=== PATIENT | female | born 1990 | race Two or more races ===

== ENCOUNTER 2024-09-04 20:14 | Emergency (ER) | payer MEDICAID, SELFPAY ==
[2024-09-04 20:16] VITALS: BMI 27.4
[2024-09-04 20:31] VITALS: BP 133/78; PULSE 94; RESP 20; TEMP 37.1; O2SAT 97
--- NOTE | 2024-09-04 20:41 | PD.EDANX ---
ED Anxiety RME/HPI General Chief Complaint: Depression Stated Complaint: SUICIDAL THOUGHTS Time Seen by Provider: 09/04/24 20:40 Arrival date/time: 09/04/24 20:14 RME / HPI RME / HPI narrative: This section includes all my notes and documentations, including HPI, PE, and ED course. Selvin Salcido MD HPI: 33yo female with history of schizophrenia, bipolar disorder here requesting help for anxiety and racing thoughts. No thoughts of hurting herself or others. No other complaints. ROS: All negative except as documented in HPI. Physical Exam: General: Alert and oriented. Appears anxious. Eyes: Conjunctivae and lids clear. ENT: No nasal congestion. Neck: Supple. Heart: RRR. Lungs: No respiratory distress. Good air movement. No rhonchi, wheezing, rales. Abdomen: Soft and nontender. Skin: Warm and dry. Neuro: Alert and oriented X 3. At this point, diagnoses include anxiety and racing thoughts. Treatment here included Buspar and Propanolol. Recommended more outpatient management. Based on my best medical judgment, made decision no further evaluation or treatment indicated at this time. Patient understands and agrees to the discharge instructions customized and printed, see below. Discharge Instructions from Dr. Salcido: 1. As you requested, we are treating you for anxiety and racing thoughts. And not transferring you to inpatient psychiatric unit. 2. You don't meet the criteria for emergency assisted in psychiatric unit against your will. Because you have no thoughts of hurting yourself or others. And there are no signs of psychosis (loss of touch with reality) which can potentially be harmful to you and others. 3. Take BuSpar and propranolol as prescribed. May take a couple weeks for full benefit. 4. See a private doctor on 09/06/2024 for recheck and further care. Ask to help you stay healthy both physically and mentally. And help to receive all services available to you, including referral to see mental health specialists. 5. Seek immediate medical care (you can call 911 any time) with thoughts of hurting yourself or with any concerns. Selvin Salcido MD Related Data Previous Rx's ?Medication ?Instructions ?Recorded buspirone 15 mg tablet 15 mg PO BID #60 tabs 09/04/24 propranolol 10 mg tablet 10 mg PO BID #60 tabs 09/04/24 Allergies Allergy/AdvReac Type Severity Reaction Status Date / Time No Known Allergies Allergy Verified 09/04/24 20:22 Review of Systems Review of Systems Systems Reviewed: All systems reviewed, normal except as documented ED Exam Narrative Physical exam: As noted in HPI. Course Quality Measures none Vital Signs Vital signs: Vital Signs Temperature 98.7 F 09/04/24 20:31 Pulse Rate 94 09/04/24 20:31 Respiratory Rate 20 09/04/24 20:31 Blood Pressure 133/78 H 09/04/24 20:31 Pulse Oximetry (%) 97 09/04/24 20:31 Oxygen Delivery Method Room Air 09/04/24 20:31 Anxiety MDM Narrative MDM Narrative: Scribe Attestation: 09/04/24 Lorelei Bear am scribing for and in the presence of Dr. Salcido. 33yo female with history of schizophrenia, bipolar disorder here requesting help for anxiety and racing thoughts. No thoughts of hurting herself or others. No other complaints. Patient data External records reviewed:: [facility] previous records (Per chart review, patient has no previous ED visits or admissions to this facility.) Clinical information provided by:: patient Social determinants that could affect healthcare access:: substance use (History of methamphetamine use) Patient has the following chronic illnesses:: schizophrenia, bipolar disorder How is presenting disease/condition affected by chronic disease/condition?: caused by Evaluation data The following diagnostics were reviewed and interpreted by me:: other (specify) (none) Lab and/or radiology exams considered but not ordered:: none Interpretation Summary: none Medications / Prescriptions Medications or Prescriptions considered but not ordered:: none Medication administrations:: Buspar and Propanolol Consultations Consultation(s) initiated? (list below): No Diagnosis Differential diagnosis anxiety: hyperventilation, panic disorder and acute anxiety Most likely diagnosis given after review of the tests above:: Anxiety, Racing thoughts Admission Indicated Admission indicated?: not indicated Explain why admission is indicated or not indicated:: With no condition needing emergent intervention, there was no indication for admission. Admission Request Was there a request for admission?: No Disposition Plan Disposition Plan: Discharge Discharge Attestation Discharge Attestation: The patient and all family members were given an opportunity to ask questions and understood the discharge instructions. Discharge instructions specifically effects, indications for sooner follow up or return to the emergency department, and the expected course of current diagnosis. Patient condition: Stable Discharge Plan Plan Patient Disposition: HOME (Self Care) Prescriptions/Referrals Prescriptions/Med Rec: New buspirone 15 mg tablet 15 mg PO BID Qty: 60 0RF propranolol 10 mg tablet 10 mg PO BID Qty: 60 0RF Problem List Clinical Impression: Racing thoughts, Anxiety Patient/Caregiver Discharge Instructions Discharge Activity: activity as tolerated Education Materials: ED Anxiety Reaction Additional Instructions: Discharge Instructions from Dr. Salcido: 1. As you requested, we are treating you for anxiety and racing thoughts. And not transferring you to inpatient psychiatric unit. 2. You don't meet the criteria for emergency assisted in psychiatric unit against your will.? Because you have no thoughts of hurting yourself or others.? And there are no signs of psychosis (loss of touch with reality) which can potentially be harmful to you and others. 3. Take BuSpar and propranolol as prescribed. May take a couple weeks for full benefit. 4. See a private doctor on 09/06/2024 for recheck and further care. Ask to help you stay healthy both physically and mentally.? And help to receive all services available to you, including referral to see mental health specialists. 5. Seek immediate medical care (you can call 911 any time) with thoughts of hurting yourself or with any concerns. Print Language: Mosotho Stand Alone Forms: [facility] Award Info., Patient Portal Info Letter
[2024-09-04 21:35] VITALS: BP 132/78; PULSE 88
[2024-09-04] MEDS: PROPRANOLOL 10 MG TABLET PO (21:35)
== END 2024-09-04 21:37 | disposition home or self-care (01) ==
PROVIDERS: Emergency Provider Emergency Medicine
DX: F41.9 Anxiety disorder, unspecified (principal); F20.9 Schizophrenia, unspecified; F31.9 Bipolar disorder, unspecified
CPT/HCPCS: 99282; A9270